=== PATIENT | male | born 1995 | race Caucasian/White ===

== ENCOUNTER 2019-01-28 15:08 | Emergency (ER) | payer MEDICAID ==
[2019-01-28] MEDS: BACITRACIN 0.9 GM OINT TOP (16:14)
[2019-01-28] MEDS: OXYCODONE/ACETAMINOPHEN (5/325) TAB PO (16:15)
[2019-01-28] MEDS: DIPHTH/TET/ACEL PERTUSS (ADULT) 0.5 ML VIAL IM* (16:15)
[2019-01-28] MEDS: LIDOCAINE 1% (MDV) 20 ML INJ SC (17:03)
== END 2019-01-28 18:14 | disposition home or self-care (01) ==
LOC: FTE 15:08
DX: S61.412A Laceration without foreign body of left hand, initial encounter (principal); W27.2XXA Contact with scissors, initial encounter; Y92.9 Unspecified place or not applicable; Z23 Encounter for immunization
CPT/HCPCS: 12001; 73130-LT; 90471; 90715; 99283-25

== ENCOUNTER 2019-01-30 09:08 | Emergency (ER) | payer MEDICAID ==
[2019-01-30] MEDS: BACITRACIN 0.9 GM OINT TOP (09:35)
== END 2019-01-30 10:06 | disposition home or self-care (01) ==
LOC: FTE 09:08
DX: Z48.01 Encounter for change or removal of surgical wound dressing (principal)
CPT/HCPCS: 99283; Z7502

== ENCOUNTER 2019-02-07 11:59 | Emergency (ER) | payer MEDICAID ==
[2019-02-07] MEDS: KETOROLAC 60 MG INJ IM (13:05)
== END 2019-02-07 13:27 | disposition home or self-care (01) ==
LOC: FTE 11:59
DX: T81.31XA Disruption of external operation (surgical) wound, not elsewhere classified, initial encounter (principal); M79.89 Other specified soft tissue disorders; Y82.8 Other medical devices associated with adverse incidents
CPT/HCPCS: 29130; 96372; 99284-25